=== PATIENT | female | born 1990 | race Caucasian/White ===

== ENCOUNTER 2017-01-29 02:56 | Emergency (ER) | payer BC, MEDICAID ==
--- NOTE | 2017-01-29 03:39 | ED Physician Chart ---
ED Chief Complaint/HPI - Patient Information Date Seen:: 01/29/17 Time Seen:: 03:35 Chief Complaint:: vomiting History of Present Illness:: location: general quality: vomiting severity: mild, mod duration: 2 hours context: pt had leftovers for dinner, a few hours later, felt nauseated and vomited a few times. no blood in vomitus, undigested food. no fever, some cramping and abdominal pain - nonspecific. no fever, no paralysis or paresthesia. decided to come to the ER due to vomiting. on arrival stable vital signs mod factors: none assoc s/s: none hx from pt. Vitals:: Vital Signs - 8 hr 01/29/17 03:08 Temp 97.6 F HR 83 RR 18 BP 129/59 O2 Sat % 97 Historian:: Patient Review:: Nurse's Note Reviewed ED Review of Systems - Review of Systems General/Constitutional: No fever, No chills, No weight loss, No weakness, No diaphoresis, No edema, No loss of appetite Skin: No skin lesions, No rash, No bruising Head: No headache, No light-headedness Eyes: No loss of vision, No pain, No diplopia ENT: No earache, No nasal drainage, No sore throat, No tinnitus Neck: No neck pain, No swelling, No thyromegaly, No stiffness, No mass noted Cardio Vascular: No chest pain, No palpitations, No PND, No orthopnea, No edema Pulmonary: No SOB, No cough, No sputum, No wheezing GI: Nausea, Vomiting, No diarrhea, Pain, No melena, No hematochezia, No constipation, No hematemesis G/U: No dysuria, No frequency, No hematuria Musculoskeletal: No bone or joint pain, No back pain, No muscle pain Endocrine: No polyuria, No polydipsia Psychiatric: No prior psych history, No depression, No anxiety, No suicidal ideation Hematopoietic: No bruising, No lymphadenopathy Allergic/Immuno: No urticaria, No angioedema Neurological: No syncope, No focal symptoms, No weakness, No paresthesia, No headache, No seizure, No dizziness, No confusion, No vertigo Family Medical History - Family Member Paternal Grandmother Hx Family Coronary Artery Disease: Yes Paternal Grandfather Hx Family Coronary Artery Disease: Yes ED Physical Exam - Physical Examination General/Constitutional: Awake, Well-developed, well-nourished, Alert, No distress, GCS 15, Non-toxic appearing, Ambulatory Head: Atraumatic Eyes: Lids, conjuctiva normal, PERRL, EOMI Skin: Nl inspection, No rash, No skin lesions, No ecchymosis, Well hydrated, No lymphadenopathy ENMT: External ears, nose nl, Nasal exam nl, Lips, teeth, gums nl Neck: Nontender, Full ROM w/o pain, No JVD, No nuchal rigidity, No bruit, No mass, No stridor Respiratory: Nl effort/Exclusion, Clear to Auscultation, No Wheeze/Rhonchi/Rales Cardio Vascular: RRR, No murmur, gallop, rubs, NL S1 S2 GI: No tenderness/rebounding/guarding, Normal BS's (hyperactive bowel sounds at epigastrium) : No CVA tenderness Extremities: No tenderness or effusion, Full ROM, normal strength in all extremities, No edema, Normal digits & nails Neuro/Psych: Alert/oriented Misc: Normal back, No paraspinal tenderness ED Assessment - Assessment General Assessment: medical decision making: pt reports eating fast food and left overs during the day today. about an hour or two ago reports onset of vomiting several times. undigested food products. then reports abdominal cramping. feels a bit better after vomiting but abdominal cramping is causing discomfort. no diarrhea. physical exam finding of hyperactive bowel sounds at epigastrium and mild tenderness at epigastrium with no rebound and no guarding are consistent with likely food poisoning from any of the above items she consumed. will treat with toradol 60/phenergan 25 IM and bland diet for 3 days. also FU with physician tomorrow. pt and are advised and state they will follow up as recommended. ED Septic Shock - . Is Septic Shock (SBP<90, OR Lactate>4 mmol\L) present?: No - <6hrs of presentation: Vital Signs: Vital Signs - 8 hr 01/29/17 03:08 Temp 97.6 F HR 83 RR 18 BP 129/59 O2 Sat % 97 ED Reassessment (Disposition) - Reassessment Reassessment:: pt stable while in ER Reassessment Condition:: Improved - Diagnosis Diagnosis:: vomiting, abdominal cramping, food poisoning - Aftercare/Follow up Instructions Aftercare/Follow-Up Instructions:: Refer to Discharge Instructions Notes:: go to physician for recheck tomorrow - Patient Disposition Discharge/Transfer:: Home Condition at Disposition:: Stable, Improved
== END 2017-01-29 04:10 | disposition home or self-care (01) ==
LOC: ER 02:56
DX: R10.9 Unspecified abdominal pain (principal); T62.91XA Toxic effect of unspecified noxious substance eaten as food, accidental (unintentional), initial encounter; Y92.89 Other specified places as the place of occurrence of the external cause
CPT/HCPCS: 99284; 96372 ×2; J1885; Z7502

== ENCOUNTER 2017-05-15 03:13 | Emergency (ER) | payer BC ==
--- NOTE | 2017-05-15 03:40 | ED Physician Chart ---
ED Chief Complaint/HPI - Patient Information Date Seen:: 05/15/17 Time Seen:: 03:35 Chief Complaint:: Vomting History of Present Illness:: 27 yo female, , developed abdominal pain 5 hours ago, followed by nausea and vomiting 3 hours ago. It was sharp pain at epigastric area. She felt chills , but no fever. Allergies:: Allergies Allergy/AdvReac Type Severity Reaction Status Date / Time amoxicillin Allergy Verified 01/29/17 03:58 Vitals:: Vital Signs - 8 hr 05/15/17 03:25 Temp 97.7 F HR 83 RR 18 BP 125/72 O2 Sat % 99 ED Review of Systems - Review of Systems General/Constitutional: No fever, Chills Skin: No skin lesions Head: No headache Eyes: No pain ENT: No earache Neck: No neck pain Cardio Vascular: No chest pain Pulmonary: No SOB GI: Nausea, Vomiting, Pain, Constipation Musculoskeletal: No bone or joint pain ED Past Medical History - Past Medical History Past Medical History: No significant medical hx Social History: Non Smoker, Alcohol, No Drug Use Surgical History: None Family Medical History - Family Member Paternal Grandmother History Unknown: Yes Hx Family Coronary Artery Disease: Yes Paternal Grandfather History Unknown: Yes Hx Family Coronary Artery Disease: Yes ED Physical Exam - Physical Examination General/Constitutional: Awake, Alert Head: Atraumatic Eyes: PERRL, EOMI Skin: No skin lesions ENMT: Nasal exam nl Neck: No nuchal rigidity Respiratory: Clear to Auscultation, No Wheeze/Rhonchi/Rales Cardio Vascular: RRR, No murmur, gallop, rubs, NL S1 S2 Other GI comments:: Epigastric tenderness, soft Extremities: normal strength in all extremities Neuro/Psych: No focal deficits ED Labs/Radiology/EKG Results - Radiology Results Results: CT abdomen/pelvis wo contrast: Stool present throughout the colon. No other acute abdominal or pelvic pathology ED Assessment - Assessment General Assessment: Gastroenteritis Leukocytosis Assessment/Comments:: CBC, CMP CT abdomen Pantoprazole Rocephin 1g IV Flagyl 500mg IV D/c home Cipro 500mg bid po F/u PCP or return to ER if symptoms worsen ED Septic Shock - . Is Septic Shock (SBP<90, OR Lactate>4 mmol\L) present?: No - <6hrs of presentation: Vital Signs: Vital Signs - 8 hr 05/15/17 03:25 Temp 97.7 F HR 83 RR 18 BP 125/72 O2 Sat % 99 ED Reassessment (Disposition) - Reassessment Reassessment Condition:: Improved ED Discharge Plan - Patient Disposition Admit/Discharge/Transfer: PT DISCHARGED HOME Condition at Disposition: Improved Prescriptions: Ciprofloxacin [Cipro] 500 mg PO BID #14 tab Ondansetron [Zofran Odt] 4 mg PO Q12H PRN #14 odt PRN Reason: Nausea / Vomiting Pantoprazole [Protonix] 40 mg PO DAILY #7 ect Instructions: Viral Gastroenteritis Additional Instructions: Follow up with your primary doctor. Comply with prescribed medications as ordered. Come back to emergency room if symptoms worsen. Forms: Work Release Form
[2017-05-15 04:19] LABS: URINE MICROSCOPIC INDICATED? YES; URINE SOURCE RANDOM
[2017-05-15 04:21] LABS: % EOSINOPHILS 0.5 % (0.0-5.0); % LYMPHOCYTES 10.4 % (20.0-50.0); % MONOCYTES 5.2 % (2.0-10.0); % NEUTROPHILS 79.9 % (40.0-80.0); BASOPHILE ABSOLUTE 0.5 Th/cumm (0-0.2); EOSINOPHILE ABSOLUTE 0.1 Th/cmm (0.1-0.4); HEMATOCRIT 43.8 % (41.0-60); LYMPHOCYTE ABSOLUTE 1.3 Th/cmm (1.5-3.0); MEAN CORPUSCULAR HEMOGLOBIN 29.5 pg (27.0-31.0); MEAN CORPUSCULAR HGB CONC 34.3 pg (28.0-36.0); MEAN PLATELET VOLUME 8.7 fl; MONOCYTE ABSOLUTE 0.7 Th/cmm (0.3-1.0); NEUTROPHILE ABSOLUTE 10.2 Th/cmm (1.8-8.0); PLATELET COUNT 288 Th/cmm (150-400); RED BLOOD COUNT 5.09 Mil/cmm (3.80-5.10)
[2017-05-15 04:23] LABS: WHITE BLOOD COUNT 12.8 Th/cmm (4.8-10.8)
[2017-05-15 04:38] LABS: URINE BILIRUBIN NEGATIVE (NEGATIVE); URINE BLOOD TRACE (NEGATIVE); URINE GLUCOSE (UA) NEGATIVE (NEGATIVE); URINE KETONE 15 mg/dL (NEGATIVE); URINE LEUKOCYTE ESTERASE NEGATIVE (NEGATIVE); URINE NITRATE NEGATIVE (NEGATIVE); URINE PH 6.5 (4.6 - 8.0); URINE PROTEIN TRACE mg/dL (NEGATIVE); URINE UROBILINOGEN 0.2 E.U./dL (0.2 - 1.0)
[2017-05-15] MEDS ORDERED: cefTRIAXone 1 GM in Sodium Chloride 0.9% 50 ML IV ONE (04:39)
[2017-05-15 04:40] LABS: ALB/GLOB RATIO 1.6 (1.0-1.8); ALBUMIN 4.6 gm/dL (3.7-5.3); ALKALINE PHOSPHATASE 62 U/L (34-104); AMYLASE SERUM 40 U/L (29-103); BILIRUBIN,TOTAL 0.5 mg/dL (0.3-1.0); BUN - UREA NITROGEN 14 mg/dL (7-25); CALCIUM SERUM 9.4 mg/dL (8.6-10.3); CARBON DIOXIDE 23.6 mEq/L (21.0-31.0); CHLORIDE 102 mEq/L (98-107); CREATININE - SERUM 0.8 mg/dL (0.6-1.2); GFR AFRICAN-AMERICAN > 60.0 ml/min (>90); GFR NON AFRICAN-AMERICAN > 60.0 ml/min; GLUCOSE 130 mg/dL (70-105); LIPASE 15 U/L (11-82); POTASSIUM SERUM 3.6 mEq/L (3.5-5.1); SGOT 16 U/L (13-39); SGPT/ALT 13 U/L (7-52); SODIUM SERUM 136 mEq/L (136-145); TOTAL PROTEIN,SERUM 7.4 gm/dL (6.0-8.3)
[2017-05-15 04:42] LABS: URINE CLARITY HAZY (CLEAR); URINE COLOR YELLOW
[2017-05-15] MEDS ORDERED: Sodium Chloride 0.9% 1,000 ML IV ONE (04:42)
[2017-05-15] MEDS ORDERED: metroNIDAZOLE 500mg/NS 100mL 500 MG/100 ML BAG IV ONE ×2 (04:44→05:30)
[2017-05-15 04:47] LABS: URINE BACTERIA FEW /hpf (NONE SEEN); URINE EPITHELIAL CELLS FEW /lpf (FEW); URINE RBC 0-2 /hpf (0-5); URINE WBC 0-2 /hpf (0-5)
[2017-05-15] MEDS ORDERED: Morphine Sulfate 2 mg/mL 1mL Syr IV STA (04:48)
[2017-05-15] MEDS ORDERED: Morphine Sulfate 2 mg/mL 1mL Syr ONE (05:29)
--- NOTE | 2017-05-15 08:18 | Diagnostic Imaging Report ---
Exam: CT examination abdomen pelvis. HISTORY: Abdominal pain Total DLP equals 522 CTDI equals 10.9 Findings: Multiple contiguous thin section of the abdomen pelvis obtained from lower thorax to the pubic symphysis without the administration of oral or intravenous contrast material. No prior studies available comparison. The study demonstrates normal aeration of lung parenchyma the bases. Liver and spleen intact. There is evidence for 3 cm cyst in the posterior inferior portion of the spleen. Pancreas is normal. The gallbladder is intact. The kidneys demonstrate no evidence of obstructive uropathy or nephrolithiasis. No free fluid is noted in the abdomen pelvis. There is no evidence of diverticular disease of diverticulitis. Residual contrast material is noted throughout the lower: And the rectosigmoid junction the rectum. The uterus is normal. Large amount fecal content throughout the colon identified. The appendix not seen there is no evidence of secondary signs of appendicitis. IMPRESSION: 1. Large amount of fecal content throughout the colon, residual contrast material throughout the lower colon from previous examination 2. No evidence for appendicitis 3. 3 cm splenic cyst.
[2017-05-15] MEDS ORDERED: Pantoprazole 40 mg EC Tab PO SCH (09:00)
== END 2017-05-15 07:00 | disposition home or self-care (01) ==
LOC: ER 03:13
DX: K52.9 Noninfective gastroenteritis and colitis, unspecified (principal)
CPT/HCPCS: 99285; 96365; 96368; 96375; 96376; 74176; 36415; 83605; 85025; 81001; 82150; 81025; 83690; 80053; 87040; C9113; J2270; J2405 ×2; J0696; 90799; J7030